=== PATIENT | male | born 1990 | race Caucasian/White ===

== ENCOUNTER 2016-10-02 10:12 | Emergency (ER) | payer SELFPAY ==
[~2016-10-02] VITALS: Ht 185.4 cm; Wt 104.5 kg
[2016-10-02 10:14] VITALS: BP 128/83; PULSE 97; TEMP 97.9
[2016-10-02] MEDS ORDERED: AMOXICILLIN 50500 MG PO (10:35)
[2016-10-02] MEDS ORDERED: ULTRAM 50MG TAB50 MG PO (10:35)
== END 2016-10-02 10:50 | disposition home or self-care (01) ==
LOC: COL.ER 10:12
DX: H66.91 Otitis media, unspecified, right ear (principal)